=== PATIENT | male | born 1965 | race Caucasian/White ===

== ENCOUNTER → 2016-04-20 | Outpatient (CLI) | payer BC ==
[~2016-04-20] VITALS: Ht 180.3 cm; Wt 89.7 kg
[~2016-04-20] MED LIST: METH500T37 PO; OXYC-57 PO; PRLSR20 PO
[2016-04-20 12:50] VITALS: BP 126/85; PULSE 76; Ht 180.3 cm; Wt 89.7 kg
== END | disposition home or self-care (01) ==
LOC: C.NEUR 12:37
PROVIDERS: ATTEND Internal Medicine Pulmonary Disease
DX: G47.30 Sleep apnea, unspecified (principal); G47.61 Periodic limb movement disorder

== ENCOUNTER → 2016-05-26 | Outpatient (CLI) | payer BC ==
--- NOTE | 2016-05-27 05:41 | PAP/PSG TECHNICIAN REPORT ---
[facility] Remediation Consultant Polysomnogram Report Study name: None Report date: 05/27/2016 Study date: 05/26/2016 Referring Physician: Aurelio Espinal Pulmonary Name: BEVERLY BERRIOS Interpreting Physician: Denilson Pierre M.D. Date of : 1965 Remediation Consultant: Nabila Oropeza [facility]. Sex: Male Age: 50 StudyType: PSG Weight: 197 lbs Height: 50 years, Height 5' 11" Neck Circum: 16 inches BMI: 27.47 Medications: OMEPRAZOLE Patient History 50 yr. old male here for a possible split night sleep study. Patient had a prior sleep study that showed major body movements. Patients Lorane sleepiness scale score is 13/24. Parameters Monitored NPSG: E1-M2, E2-M1, Fp1-M2, Fp2-M1, F3-M2, F4-M2, F4-M1, C3-M2, C4-M2, C4-M1, O1-M2, O2-M2, O2-M1, T3-M2, T4-M1, P3-M2, P4-M1, CHIN1, CHIN2, HR, EKG, Legs, PFLOW, SNOR, FLOW, CFLOW, Tidal Volume, THOR, ABDO, SpO2, PLTH, CPRESS, ETCO2 Wave, ETCO2, pH Sleep Architecture Sleep Stages Time at Lights Off 9:38:38 PM STAGES Time (min.) TST (%) Time at Lights On 4:57:38 AM Wake 40.5 -- Total Recording Time (TRT) 438.00 min. N1 91.0 23 Total Sleep Period (TSP) 430.0 min. N2 235.0 59 Total Sleep Time (TST) 397.5min. N3 5.5 1 Awake Time 40.5 min. REM 66.0 17 Wake after Sleep Onset 32.5 min. Sleep Efficiency (SE) 91 % Sleep Onset Latency (HARLEEN) 9.0 min. Number of Stage 1 Shifts None Awakenings 37 Stage Changes 215 Number of REM periods 2 REM 66.0 17 REM Latency 82.5 min. NREM 331.5 83 Body Position Analysis Supine Right Left Side Prone Vertical Total Sleep Time (min.) 57.1 352.4 0.0 352.39 0.0 2.0 Total Sleep Time (%) 11% 89% 0% 89 0% N/A% Total Sleep Time REM (min.) 0.0 66.0 0.0 None 0.0 0.0 Total Sleep Time NREM (min.) 45.1 286.4 0.0 None 0.0 0.0 Intermittent Wake (min.) 12.0 26.4 0.0 None 0.0 2.0 Total Sleep Period (%) 12% None None None None None Arousals Myoclonus (PLM) * Events Count Index Events Count Index Spontaneous 10 2 Events Awake (PLMW) 69 102.2 Respiratory 66 10.7 Events Asleep w/ Arousal (PLMA) 39 5.9 PLM 36 6 Events Asleep w/o Arousal (PLMS) 213 32.2 Snoring 19 3 Total Asleep 252 38.0 Total 130 20 Total 321 44 Respiratory Analysis * CA OA MA CH H RERA Total Count 1 110 6 0 44 1 161 Index 0.2 16.6 0.9 0 6.6 0 24.5 Mean Duration 35.2 25.5 27.4 0.00 26.3 30.8 25.9 Longest Duration 35.2 50.5 33.4 0.00 33.4 30.8 50.5 Respiratory Event Summary Total Supine ~Supine Right Left Prone REM NREM Apneas Count 117 36 81 81 N/A N/A 2 115 Index 17.7 48 14 13.8 N/A N/A 2 21 Hypopneas (4% Desat) Count 44 13 31 31 N/A N/A 1 43 Index 6.6 17.3 5 5.3 N/A N/A 0.9 7.8 Apneas & All Hypopneas Count 161 49 112 112 N/A N/A 3 158 Index 24.3 65 19 19 N/A N/A 2.7 28.6 Respiratory Events (Nipple Machine Operator+All Hyp+RERA) Count 161 49 113 113 N/A N/A 3 158 Index 24.5 65 19 19.2 N/A N/A 2.7 28.8 Respiratory Related Arousal Count 66 49 48 48 N/A N/A 1 70 Index 10.7 31 8 8 N/A N/A 1 13 Snoring Analysis Supine Right Left Prone REM NREM Total Snore duration 8.9 min Snores count 83 252 N/A N/A 7 328 335 Snore mean duration 1.6 Sec Snores index 110 43 N/A N/A 6.4 59.4 50.6 TST with snoring (%) 2.2% Desaturation Event Summary: Minimum %SpO2 Event Count Mean/Min/Max Duration(sec.) Desaturation Index % Time In Bed > 90 100 30.8 / 15.0 / 53.8 14.5 97.0 86 - 90 0 N/A 0.0 3.0 81 - 85 0 N/A 0.0 0.0 76 - 80 0 N/A 0.0 0.0 71 - 75 0 N/A 0.0 0.0 66 - 70 1 7.3 / 7.3 / 7.3 496.6 0.0 61 - 65 0 N/A 0.0 0.0 56 - 60 0 N/A 0.0 0.0 51 - 55 0 N/A 0.0 0.0 < 50 0 N/A 0.0 0.0 Total REM NREM Awake <50% 0.0 min. 0.0 min. 0.0 min. 0.0 min. 51 - 60% 0.0 min. 0.0 min. 0.0 min. 0.0 min. 61 - 70% 0.1 min. 0.0 min. 0.0 min. 0.1 min. 71 - 80% 0.0 min. 0.0 min. 0.0 min. 0.0 min. 81 - 90% 12.8 min. 2.7 min. 8.8 min. 1.4 min. 91 - 100% 413.6 min. 63.2 min. 314.2 min. 36.1 min. Average 95 94 95 94 Minimum SpO2 68 88 86 68 Desaturation Event Index 13.8 0.9 17.2 7.4 # Desat. Events below 89% 4 N/A 1 3 Time(%) with Saturation below 89% 0.9 0.3 0.5 0.1 Time(min.) with Saturation below 89% 3.9 1.5 2.2 0.3 Time (mins) REM (mins) NREM (mins) % of TST SpO2 Below 90% 16 N/A N16 1.9 SpO2 Below 88% 1 0 0 0 Heart Rate Analysis Min (bpm) Max (bpm) Average (bpm) Awake 30 127 76 NREM 59 127 73 REM 61 86 76 Overall 59 127 74 Supplemental O2 Values Minimum O2 level: None Value Start Time End Time Remediation Consultant Comments MR. Berrios slept in the right and supine positions. No cardiac arrhythmia. PLMs noted. No bruxism noted. Snoring was noted and scored as a 2 on a scale of 0 through 5. (0=no snoring, 5=snoring loud enough to be heard through a closed door or down the delgado way) MR. Berrios did not wake to use the during the night. MR. Berrios stated, That was a normal night. The final report will be interpreted and signed by a sleep physician. The completed physician report will then be placed in the patient medical record. Therapy (cm H2O) 0 TIB (min.) 438.0 TST (min.) 397.5 Sleep Onset (min.) 9.0 REM Onset From Sleep (min.) 82.5 Sleep Efficiency % 91 Wakefulness (%) 9 Wakefulness (min.) 40.5 NREM 1 (%) 23 NREM 1 (min.) 91.0 NREM 2 (%) 59 NREM 2 (min.) 235.0 NREM 3 (%) 1 NREM 3 (min.) 5.5 REM (%) 17 REM (min.) 66.0 # Arousals 130 Arousal Index 20 # Snore 335 Snore Index 50.6 AHI 24.3 AHI Supine 65 AHI Non-Supine 19 NREM AHI 28.6 REM AHI 2.7 RDI 24.5 # Obstructive Apnea 110 # Central Apnea 1 # Mixed Apnea 6 # Hypopneas 44 RERAs 1 Total Respiratory Events 165 Time Below SpO2 89% (min.) 3.7 Mean NREM SpO2 (%) 95 Mean REM SpO2 (%) 94 Mean Sleep SpO2 (%) 95 Min NREM SpO2 (%) 86 Min REM SpO2 (%) 88 Position Supine (min.) 57.1 Position Non-supine (min.) 352.4 LM Index Sleep 38.0 LM Index NREM 43.8 LM Index REM 9.1 Mean Heart Rate (bpm) 74 Min Heart Rate (bpm) 59
--- NOTE | 2016-06-01 07:07 | POLYSOMNOGRAPH REPORT ---
CLINICAL DATA: A 50-year-old male with BMI of 27.5, referred by Dr. Espinal for evaluation of possible CHERRIE with a split-night /baseline sleep study. He has had prior major body movements on previous sleep study and his Russell sleep score is elevated at 13/24. SLEEP ARCHITECTURE: Total sleep period was 430 minutes. Total sleep time was 397.5 minutes, divided between 331.5 minutes of non-REM sleep and 66 minutes REM sleep. Sleep onset latency was 9 minutes. REM latency was 82.5 minutes. Sleep efficiency was 91%. Wake after sleep onset was 32.5 minutes. Sleep consisted of stage N1 23%, N2 59%, N3 1%, REM 17%. AROUSAL DATA: 130 arousals were recorded for an index of 20 per hour. PLM DATA: 252 limb movements during sleep were noted for an index of 38 per hour with arousal index of 5.9 per hour. RESPIRATORY DATA: Moderate sleep apnea/hypopnea was documented. The AHI was 24.3. There was 1 central, 110 obstructive, and 6 mixed apneic episodes. The longest duration of apnea was 50.5 seconds. There were 44 hypopneic episodes. The longest duration of hypopnea was 33.4 seconds. OXIMETRY DATA: Mild nocturnal hypoxemia was seen. Oxygen mago was 86% during non-REM sleep. Mean saturation was 95%. Time below 88% was 1 minute. EKG: Heart rates ranged from 59-127 beats per minute. No arrhythmias were noted. WOOD TILE INSTALLATION HELPER'S COMMENTS: The patient slept in the right and supine positions. Snoring was mild, rated 2 on a scale of 1 through 5. IMPRESSION: Moderate sleep apnea/hypopnea with an AHI of 24.3 with frequent limb movements during sleep. RECOMMENDATIONS: The patient may benefit from a repeat sleep study with CPAP. [facility]
== END | disposition home or self-care (01) ==
LOC: C.NEUR 21:00
PROVIDERS: ATTEND Internal Medicine Pulmonary Disease
DX: G47.30 Sleep apnea, unspecified (principal)

== ENCOUNTER → 2016-06-04 | Outpatient (CLI) | payer BC ==
[~2016-06-04] VITALS: Ht 182.9 cm; Wt 90.0 kg
[2016-06-04 16:04] VITALS: BP 130/82; PULSE 80; Ht 182.9 cm; Wt 90.0 kg
== END | disposition home or self-care (01) ==
LOC: C.NEUR 15:39
PROVIDERS: ATTEND Internal Medicine Pulmonary Disease
DX: G47.61 Periodic limb movement disorder (principal); G47.30 Sleep apnea, unspecified

== ENCOUNTER → 2016-12-21 | Outpatient (CLI) | payer BC ==
--- NOTE | 2016-12-21 10:36 | DIAGNOSTIC IMAGING REPORT ---
FUSION CT SINUSES W/O HISTORY: J32.9 Chronic sinusitis TECHNIQUE: Multiaxial CT images of the sinuses were performed and reformatted in the coronal plane without the use of intravenous contrast. Fusion CT protocol was also obtained. COMPARISON STUDY: None. FINDINGS: A 1.5 cm retention cyst within the right maxillary sinus. Mild mucosal thickening within the floor of the left maxillary sinus. The frontal sinuses, ethmoid air cells, and sphenoid sinuses are clear. Partial opacification of the bilateral mastoid air cells. Mild right nasal septal deviation. Old nasal bone fractures. No fluid levels within the paranasal sinuses. The bilateral ostiomeatal units are patent. Bilateral middle turbinectomy. The orbital floors and lamina papyracea are intact. Right-sided lens implant. The visualized brain parenchyma is unremarkable. There is a metallic implant along the right posterior temporal scalp. IMPRESSION: 1. Mild chronic maxillary sinus disease as described above. 2. No fluid levels within the paranasal sinuses. 3. Mild right nasal septal deviation. 4. Bilateral mastoid effusions. Electronically signed by: Paolo Snyder M.D. 12/21/2016 10:35 AM Dictated Date/Time: 12/21/2016 10:27 AM
== END | disposition home or self-care (01) ==
LOC: C.CTS 10:07
PROVIDERS: ATTEND Physician Assistant
DX: J32.0 Chronic maxillary sinusitis (principal); J34.2 Deviated nasal septum; H74.8X3 Other specified disorders of middle ear and mastoid, bilateral

== ENCOUNTER 2017-02-22 09:24 | Emergency (ER) | payer BC ==
[~2017-02-22] VITALS: Ht 167.6 cm; Wt 87.3 kg
[2017-02-22 09:27] VITALS: TEMP 36.7; Ht 167.6 cm; Wt 87.3 kg
[2017-02-22] MEDS ORDERED: KETOROLAC TROMETHAMINE 30 MG/ML VIAL IV STA (10:02)
[2017-02-22] MEDS ORDERED: ONDANSETRON INJ 2 MG/ML 2 ML VIAL IV STA (10:02)
[2017-02-22] MEDS ORDERED: HYDROmorphone INJ 1 MG/ML SYR IV STA ×2 (10:02→11:30)
[2017-02-22 10:17] LABS: BASO % 0.4 %; BASO ABS # 0.04 K/uL (0-0.2); COMPLETE YES; EOS % 1.6 %; HEMATOCRIT 44.2 % (42-52); IG% 0.3 %; LYMPH % 31.1 %; MEAN CELL VOLUME 90.4 fL (80-100); MEAN CORPUSCULAR HEMOGLOBIN 31.5 pg (25-34); MEAN CORPUSCULAR HGB CONC 34.8 g/dl (32-36); MEAN PLATELET VOLUME 10.2 fL (7.4-10.4); MONO % 8.4 %; NEUT % 58.2 %; PLATELET COUNT 228 K/uL (130-400); RED BLOOD COUNT 4.89 M/uL (4.7-6.1); WHITE BLOOD COUNT 9.97 K/uL (4.8-10.8)
--- NOTE | 2017-02-22 10:19 | EMERGENCY ROOM VISIT NOTE ---
History Report prepared by Oni: Elizabeth Ferguson Under the Supervision of: Dr. Gabriel Fields M.D. First contact with patient: 09:43 Chief Complaint: FLANK PAIN Stated Complaint: PAIN IN SIDE History of Present Illness The patient is a 51 year old male who presents to the Emergency Room with complaints of persistent left flank pain that began 12 hours ago. He currently rates his discomfort as an 8/10 in severity. The patient states that he has a history of a cholecystectomy and states that his pain today feels similar to when he had gallstones. He denies any history of kidney stones. The patient states that he has been vomiting and nauseous, but denies any urinary symptoms. Source of History: patient Onset: 12 hours ago Position: other (left flank) Symptom Intensity: 8/10 Timing: other (persistent) Associated Symptoms: + nausea, + vomiting Review of Systems See HPI for pertinent positives & negatives. A total of 10 systems reviewed and were otherwise negative. Past Medical & Surgical Surgical Problems: (1) Hx of cholecystectomy Social History Smoking Status: Current Every Day Smoker Marital Status: Housing Status: lives with significant other Occupation Status: employed Current/Historical Medications Scheduled Omeprazole (Prilosec), 20 MG PO DAILY Tamsulosin Hcl (Flomax), 0.4 MG PO DAILY Scheduled PRN Oxycodone Immediate Rel Tab (Roxicodone Ir), 1-2 TAB PO Q4H PRN for Severe Pain Allergies Coded Allergies: No Known Allergies (Verified , 02/22/17) Physical Exam Vital Signs Date Time Temp Pulse Resp B/P (MAP) Pulse Ox O2 Delivery O2 Flow Rate FiO2 02/22/17 12:46 67 20 124/71 99 02/22/17 11:12 69 20 127/71 97 02/22/17 09:27 36.7 78 18 172/86 98 Room Air Physical Exam GENERAL: Patient is a healthy-appearing well-nourished male HEAD: Normocephalic atraumatic EYES: Ocular movements intact pupils equal and react to light OROPHARYNX mucous membranes are moist no exudates present no erythema or edema present NECK: Supple no nuchal rigidity CHEST: Good equal expansion LUNGS: Clear and equal to auscultation CARDIAC: Normal S1 and S2 ABDOMEN: Soft nontender no guarding BACK: No CVA tenderness EXTREMITIES: No pain upon palpation normal muscle strength in all groups no clubbing cyanosis or edema NEURO: Patient is following commands and answering questions appropriately. Alert and oriented x3 Cranial Nerves 2-12 grossly intact Medical Decision & Procedures ER Provider Diagnostic Interpretation: CT results as stated below per my review and radiologist interpretation: ABD/PELVIS WITHOUT FOR STONE HISTORY: 51 years-old Male Pt c/o Left sided flank pain acute left-sided flank pain COMPARISON: CT abdomen and pelvis 04/11/2010 TECHNIQUE: Multiple axial CT images of the abdomen and pelvis were obtained without contrast. A dose lowering technique was used consistent with the principals of PANFILO. FINDINGS: Mild dependent subsegmental bibasilar atelectasis. No pneumatosis or pneumoperitoneum. Imaged inferior cardiac chambers are unremarkable. Prior cholecystectomy. Suspected mild fatty infiltration of the liver. Punctate calcification is noted adjacent to the uncinate process pancreas which is nonspecific. Pancreas is otherwise unremarkable. Adrenal glands are within normal limits. 5 x 3 mm nonobstructing calculus is seen within the interpolar left kidney. There is mild left-sided obstructive uropathy secondary to a 5 x 3 x 6 mm calculus of the proximal left ureter just present level of L3 approximately 3.7 cm distal to the ureteropelvic junction. Right kidney and right ureter are unremarkable. Urinary bladder is partially collapsed. Prostate appears to be within the upper limits of normal in size. There is minimal atherosclerosis of the aorta. No pathologic adenopathy. There is mild gaseous distention of the distal esophagus. There is no bowel obstruction or focal bowel wall thickening. There is nondistention of the rectosigmoid. There are scattered noninflamed colonic diverticula. The appendix appears normal. Soft tissues are unremarkable. Bones appear intact. Mild degenerative changes of the bilateral hips. There is a bone island of the left femoral head. Mild convex left curvature of the lumbar spine. IMPRESSION: 1. Mild left-sided hydroureteronephrosis secondary to a 5 x 3 x 6 mm calculus of the proximal left ureter at the level of L3. Additional nonobstructing calculus of the interpolar left kidney is noted. 2. Prior cholecystectomy. 3. Additional findings as above. The above report was generated using voice recognition software. It may contain grammatical, syntax or spelling errors. Electronically signed by: Elijah Raphael M.D. 02/22/2017 10:31 AM Dictated Date/Time: 02/22/2017 10:25 AM Laboratory Results 02/22/17 09:45 Red Blood Count 4.89, Mean Corpuscular Volume 90.4, Mean Corpuscular Hemoglobin 31.5, Mean Corpuscular Hemoglobin Concent 34.8, Mean Platelet Volume 10.2, Neutrophils (%) (Auto) 58.2, Lymphocytes (%) (Auto) 31.1, Monocytes (%) (Auto) 8.4, Eosinophils (%) (Auto) 1.6, Basophils (%) (Auto) 0.4, Neutrophils # (Auto) 5.80, Lymphocytes # (Auto) 3.10, Monocytes # (Auto) 0.84, Eosinophils # (Auto) 0.16, Basophils # (Auto) 0.04 02/22/17 09:45 Test 02/22/17 09:45 White Blood Count 9.97 K/uL (4.8-10.8) Red Blood Count 4.89 M/uL (4.7-6.1) Hemoglobin 15.4 g/dL (14.0-18.0) Hematocrit 44.2 % (42-52) Mean Corpuscular Volume 90.4 fL (80-100) Mean Corpuscular Hemoglobin 31.5 pg (25-34) Mean Corpuscular Hemoglobin Concent 34.8 g/dl (32-36) Platelet Count 228 K/uL (130-400) Mean Platelet Volume 10.2 fL (7.4-10.4) Neutrophils (%) (Auto) 58.2 % Lymphocytes (%) (Auto) 31.1 % Monocytes (%) (Auto) 8.4 % Eosinophils (%) (Auto) 1.6 % Basophils (%) (Auto) 0.4 % Neutrophils # (Auto) 5.80 K/uL (1.4-6.5) Lymphocytes # (Auto) 3.10 K/uL (1.2-3.4) Monocytes # (Auto) 0.84 K/uL (0.11-0.59) Eosinophils # (Auto) 0.16 K/uL (0-0.5) Basophils # (Auto) 0.04 K/uL (0-0.2) RDW Standard Deviation 42.0 fL (36.4-46.3) RDW Coefficient of Variation 12.9 % (11.5-14.5) Immature Granulocyte % (Auto) 0.3 % Immature Granulocyte # (Auto) 0.03 K/uL (0.00-0.02) Urine Color DK YELLOW Urine Appearance TURBID (CLEAR) Urine pH 5.0 (4.5-7.5) Urine Specific [place] 1.027 (1.000-1.030) Urine Protein TRACE (NEG) Urine Glucose (UA) NEG (NEG) Urine Ketones NEG (NEG) Urine Occult Blood 3+ (NEG) Urine Nitrite NEG (NEG) Urine Bilirubin NEG (NEG) Urine Urobilinogen NEG (NEG) Urine Leukocyte Esterase NEG (NEG) Urine WBC (Auto) 1-5 /hpf (0-5) Urine RBC (Auto) 10-30 /hpf (0-4) Urine Hyaline Casts (Auto) 5-10 /lpf (0-5) Urine Epithelial Cells (Auto) 10-20 /lpf (0-5) Urine Bacteria (Auto) NEG (NEG) Anion Gap 8.0 mmol/L (3-11) Est Creatinine Clear Calc Drug Dose 74.1 ml/min Estimated GFR () 79.1 Estimated GFR (Non- 68.2 BUN/Creatinine Ratio 13.2 (10-20) Calcium Level 9.0 mg/dl (8.5-10.1) Total Bilirubin 0.3 mg/dl (0.2-1) Direct Bilirubin < 0.1 mg/dl (0-0.2) Aspartate Amino Transf (AST/SGOT) 13 U/L (15-37) Alanine Aminotransferase (ALT/SGPT) 19 U/L (12-78) Alkaline Phosphatase 99 U/L (45-117) Total Protein 8.2 gm/dl (6.4-8.2) Albumin 4.1 gm/dl (3.4-5.0) Lipase 193 U/L (73-393) Labs reviewed by ED physician. Medications Administered Medications (Trade) Dose Ordered Sig/Ailyn Route Start Time Stop Time Status Last Admin Dose Admin Ketorolac Tromethamine (Toradol Inj) 30 mg NOW STAT IV 02/22/17 10:02 02/22/17 10:03 DC 02/22/17 10:09 30 MG Hydromorphone HCl (Dilaudid Inj) 1 mg NOW STAT IV 02/22/17 10:02 02/22/17 10:03 DC 02/22/17 10:11 1 MG Ondansetron HCl (Zofran Inj) 4 mg NOW STAT IV 02/22/17 10:02 02/22/17 10:03 DC 02/22/17 10:10 4 MG Tamsulosin HCl (Flomax Cap) 0.4 mg NOW STAT PO 02/22/17 10:56 02/22/17 10:57 DC 02/22/17 11:15 0.4 MG Hydromorphone HCl (Dilaudid Inj) 1 mg NOW STAT IV 02/22/17 11:30 02/22/17 11:31 DC 02/22/17 11:41 1 MG ED Course 1000: Past medical records reviewed. The patient was evaluated in room A4B. A complete history and physical examination was performed. 1002: Ordered Zofran Inj 4 mg IV, Dilaudid Inj 1 mg IV, Toradol Inj 30 mg IV. 1056: Ordered Flomax Cap 0.4 mg PO. 1130: I reevaluated the patient and he is still experiencing pain. I discussed the exam findings with him and I discussed the treatment plan. He verbalized complete understanding and agreement. He is ready to go home. Ordered Dilaudid Inj 1 mg IV. Medical Decision Differential diagnosis: Etiologies such as appendicitis, diverticulitis, PUD, biliary pathology, UTI, pancreatitis, obstruction, mesenteric ischemia, aortic pathology, infections, inflammatory bowel disease, renal colic, as well as others were entertained. This is a 51-year-old male who presents emergency department complaining of abdominal pain. Serial abdominal examinations patient in the emergency department and no tended the patient exhibited a surgical abdomen. In addition the patient has a soft abdomen. CAT scan is concerning for the larger kidney stone. An IV was established, patient given Toradol as well as Dilaudid. Repeat examination revealed improvement patient's symptoms. I will note that the patient is afebrile here and does not have an elevation in his white blood count cell count. Based on these findings the patient wished to try concervative management at home however he will return if he develops fevers or his pain is out of control. He'll be placed on Flomax as well as oxycodone. I strongly recommended that the patient follow-up with urology. Patient was in agreement with the treatment plan. Medication Reconcilliation Current Medication List: was personally reviewed by me Blood Pressure Screening Patient's blood pressure: Normal blood pressure Blood pressure disposition: Did not require urgent referral Impression Primary Impression: Kidney stone Scribe Attestation The scribe's documentation has been prepared under my direction and personally reviewed by me in its entirety. I confirm that the note above accurately reflects all work, treatment, procedures, and medical decision making performed by me. Departure Information Dispostion Home / Self-Care Prescriptions Tamsulosin Hcl (FLOMAX) 0.4 Mg Cap 0.4 MG PO DAILY for 10 Days, #10 CAP Prov: Gabriel Fields MD 02/22/17 Oxycodone Immediate Rel Tab (ROXICODONE IR) 5 Mg Tab 1-2 TAB PO Q4H Y for Severe Pain, #24 TAB Prov: Gabriel Fields MD 02/22/17 Referrals No Doctor, Assigned (PCP) Italo Mcduffie MD, Urology Brittany HoangN.PArcadio Forms HOME CARE DOCUMENTATION FORM, IMPORTANT VISIT INFORMATION, School Instructions, Work Instructions Patient Instructions Kidney Stones - [facility], Kidney Stones Expectant Therapy, Kidney Stones Prevent, Kidney Stones Risk, [facility] Additional Instructions Return if you develop fevers or pain is out of control Follow up with Dr Mcduffie's office Take 1000 mg Tylenol every 6 hours Take Oxy IR for breakthrough pain You received narcotic or benzodiazepene medication while in the emergency room today. This is an addictive medication that may cause drowziness as well as constipation. Do not drive, operate heavy machinery, or drink alcohol under the influence of this medication. You have been examined and treated today on an emergency basis only. This is not a substitute for, or an effort to provide, complete comprehensive medical care. It is impossible to recognize and treat all injuries or illnesses in a single emergency department visit. It is therefore important that you follow up closely with Dr Hoang. Call as soon as possible for an appointment. Thank you for your time and consideration. I look forward to speaking with you again soon. Please don't hesitate to call us if you have any questions.
--- NOTE | 2017-02-22 10:32 | DIAGNOSTIC IMAGING REPORT ---
ABD/PELVIS WITHOUT FOR STONE HISTORY: 51 years-old Male Pt c/o Left sided flank pain acute left-sided flank pain COMPARISON: CT abdomen and pelvis 04/11/2010 TECHNIQUE: Multiple axial CT images of the abdomen and pelvis were obtained without contrast. A dose lowering technique was used consistent with the principals of PANFILO. FINDINGS: Mild dependent subsegmental bibasilar atelectasis. No pneumatosis or pneumoperitoneum. Imaged inferior cardiac chambers are unremarkable. Prior cholecystectomy. Suspected mild fatty infiltration of the liver. Punctate calcification is noted adjacent to the uncinate process pancreas which is nonspecific. Pancreas is otherwise unremarkable. Adrenal glands are within normal limits. 5 x 3 mm nonobstructing calculus is seen within the interpolar left kidney. There is mild left-sided obstructive uropathy secondary to a 5 x 3 x 6 mm calculus of the proximal left ureter just present level of L3 approximately 3.7 cm distal to the ureteropelvic junction. Right kidney and right ureter are unremarkable. Urinary bladder is partially collapsed. Prostate appears to be within the upper limits of normal in size. There is minimal atherosclerosis of the aorta. No pathologic adenopathy. There is mild gaseous distention of the distal esophagus. There is no bowel obstruction or focal bowel wall thickening. There is nondistention of the rectosigmoid. There are scattered noninflamed colonic diverticula. The appendix appears normal. Soft tissues are unremarkable. Bones appear intact. Mild degenerative changes of the bilateral hips. There is a bone island of the left femoral head. Mild convex left curvature of the lumbar spine. IMPRESSION: 1. Mild left-sided hydroureteronephrosis secondary to a 5 x 3 x 6 mm calculus of the proximal left ureter at the level of L3. Additional nonobstructing calculus of the interpolar left kidney is noted. 2. Prior cholecystectomy. 3. Additional findings as above. The above report was generated using voice recognition software. It may contain grammatical, syntax or spelling errors. Electronically signed by: Elijah Raphael M.D. 02/22/2017 10:31 AM Dictated Date/Time: 02/22/2017 10:25 AM
[2017-02-22 10:34] LABS: ALT/SGPT 19 U/L (12-78); AST/SGOT 13 U/L (15-37); BLOOD UREA NITROGEN 16 mg/dl (7-18); BUN/CREATININE RATIO 13.2 (10-20); CARBON DIOXIDE 25 mmol/L (21-32); CHLORIDE 105 mmol/L (98-107); CREATININE 1.22 mg/dl (0.60-1.40); GLUCOSE 112 mg/dl (70-99); POTASSIUM 3.6 mmol/L (3.5-5.1); SODIUM 137 mmol/L (136-145)
[2017-02-22 10:37] LABS: ALKALINE PHOSPHATASE 99 U/L (45-117)
[2017-02-22] MEDS ORDERED: TAMSULOSIN HCL 0.4 MG CAP PO STA (10:56)
[2017-02-22 11:21] LABS: URINE APPEARANCE TURBID (CLEAR); URINE BILIRUBIN NEG (NEG); URINE COLOR DK YELLOW; URINE NITRITE NEG (NEG); URINE SPECIFIC GRAVITY 1.027 (1.000-1.030); UROBILINOGEN NEG (NEG)
[2017-02-22 11:22] LABS: MANUAL MICROSCOPIC REQUIRED? NO; REVIEW REQ? NO
[2017-02-22] MEDS ORDERED: OXYC1TAB3 PO (11:40)
[2017-02-22] MEDS ORDERED: TAMS0.4C38 PO (11:40)
[2017-02-22 12:46] VITALS: BP 124/71; PULSE 67; O2SAT 99
== END 2017-02-22 12:48 | disposition home or self-care (01) ==
LOC: C.EDB 09:26 → C.EDA 12:48
DX: N20.0 Calculus of kidney (principal); Z90.49 Acquired absence of other specified parts of digestive tract; F17.200 Nicotine dependence, unspecified, uncomplicated

== ENCOUNTER → 2017-02-24 | Outpatient (CLI) | payer BC ==
[~2017-02-24] MED LIST changes: -METH500T37 PO; -OXYC-57 PO; +OXYC1TAB3 PO; +TAMS0.4C38 PO
--- NOTE | 2017-02-24 17:10 | DIAGNOSTIC IMAGING REPORT ---
CHEST 2 VIEWS ROUTINE CLINICAL HISTORY: N20.0 Nephrolithiasis preoperative evaluation COMPARISON STUDY: 05/23/2011 FINDINGS: Mild emphysematous and chronic interstitial change. No focal infiltrate. Diaphragms smooth. No evidence for cardiac enlargement. IMPRESSION: Chronic interstitial change. No acute process. The above report was generated using voice recognition software. It may contain grammatical, syntax or spelling errors. Electronically signed by: Cuong Sears M.D. 02/24/2017 5:08 PM Dictated Date/Time: 02/24/2017 5:07 PM
--- NOTE | 2017-02-24 17:15 | DIAGNOSTIC IMAGING REPORT ---
KUB CLINICAL HISTORY: N20.0 Nephrolithiasis nephrocalcinosis COMPARISON STUDY: CT abdomen and pelvis 02/22/2017 FINDINGS: Nonobstructive bowel pattern. Probable poorly defined 4.5 mm calcification medially inferior to the left transverse process of L3. No additional urinary tract calcifications are identified. IMPRESSION: Probable poorly defined 4.5 mm calculus mid left ureter at the level of L3 The above report was generated using voice recognition software. It may contain grammatical, syntax or spelling errors. Electronically signed by: Cuong Sears M.D. 02/24/2017 5:14 PM Dictated Date/Time: 02/24/2017 5:12 PM
== END | disposition home or self-care (01) ==
LOC: C.RAD 16:43
PROVIDERS: ATTEND Urology
DX: N20.0 Calculus of kidney (principal)

== ENCOUNTER → 2017-03-04 | Outpatient (CLI) | payer BC ==
[~2017-03-04] MED LIST changes: +ACET-1256 PO; +HYDR-5688 PO; +OXYC-57 PO
--- NOTE | 2017-03-04 17:44 | DIAGNOSTIC IMAGING REPORT ---
KUB HISTORY: N20.0 Nephrolithiasis COMPARISON: [facility] 02/24/2017. FINDINGS: The bowel gas pattern is unremarkable. There are no dilated loops of small bowel to suggest an obstruction. No significant change in the 5 mm stone within the proximal left ureter adjacent to the left L3 transverse process. Stable calcifications in the deep pelvis consistent with phleboliths. There is also a 5 mm linear stone within the upper pole the left kidney. No pneumoperitoneum or pneumatosis. Cholecystectomy. IMPRESSION: 1. No change in the 5 mm proximal left ureteral stone. 2. Stable left-sided nephrolithiasis. Electronically signed by: Paolo Snyder M.D. 03/04/2017 5:42 PM Dictated Date/Time: 03/04/2017 5:41 PM
== END | disposition home or self-care (01) ==
LOC: C.RAD 16:54
PROVIDERS: ATTEND Urology
DX: N20.2 Calculus of kidney with calculus of ureter (principal)

== ENCOUNTER → 2017-03-05 | Day surgery (SDC) | payer BC ==
[2017-03-01 13:05] VITALS: Ht 182.9 cm; Wt 86.4 kg
[~2017-03-05] VITALS: Ht 182.9 cm; Wt 86.4 kg
[~2017-03-05] MED LIST changes: +ATROPINE SULFATE 0.1 MG/ML 5ML SYR IV PRN; +CIPROFLOXACIN 400MG / D5W IV SCH; +DEXAMETHASONE SOD INJ 4 MG/ML VIAL ONE; +FENTANYL CITRATE INJ 50 MCG/1 ML 2 ML VIAL ONE; +KETOROLAC TROMETHAMINE 30 MG/ML VIAL IV ONE; +KETOROLAC TROMETHAMINE 30 MG/ML VIAL ONE; +LABETALOL HCL IV 5 MG/ML 20ML IV PRN; +LACTATED RINGER'S 1000ML 1,000 ML IV SCH; +LIDOCAINE HCL 2% 2 ML VIAL (20MG/ML) ONE; +MIDAZOLAM HCL 1 MG/ML 2ML VIAL ONE; +MoRPHine SULFATE 10 MG/ML CARP/VIAL ONE; +MoRPHine SULFATE 4 MG/ML 1 ML CARP\\VIAL IV STA; +ONDANSETRON INJ 2 MG/ML 2 ML VIAL IV PRN; +ONDANSETRON INJ 2 MG/ML 2 ML VIAL ONE; +OXYCODONE/ACETAMINOPHEN 5-325 TAB PO PRN; +PROPOFOL IV EMULSION 10 MG/ML 20 ML VIAL IV ONE; +SODIUM CHLORIDE 0.9% 1000ML 1,000 ML IV SCH
--- NOTE | 2017-03-05 07:43 | History & Physical Bridge Note ---
H&P Re-Evaluation Bridge Note: I have examined the patient, reviewed the History & Physical and in the interval since the performance of the History & Physical I have noted the following changes of clinical significance: No changes noted
--- NOTE | 2017-03-05 08:23 | Discharge Instructions-SurgCtr ---
Discharge Instructions Date of Service Mar 05, 2017. Visit Reason for Visit: Stones Discharge Discharge Diagnosis / Problem: stones Discharge Goals Goal(s): Decrease discomfort, Improve function, Increase independence, Improve disease control Activity Recommendations Activity Limitations: resume your previous activity Lifting Limitations: none Exercise/Sports Limitations: none May Resume Sexual Activity: when tolerated Shower/Bathe: no limitations Driving or Machine Use: no limitations Anesthesia . Post Anesthesia Instructions: If you have had General Anesthesia or IV Sedation: * Do not drive today. * Resume driving when surgeon permits. * Do not make important decisions or sign legal documents today. * Call surgeon for: 1. Temperature elevations greater than 101 degrees F. 2. Uncontrollable pain. 3. Excessive bleeding. 4. Persistent nausea and vomiting. 5. Medication intolerance (nausea, vomiting or rash). * For nausea and vomiting use only clear liquids such as: tea, soda, bouillon until nausea subsides, then gradually increase diet as tolerated. * If you have any concerns or questions, call your surgeon's office. If physician is unavailable and it is an emergency, call 911 or go to the nearest emergency room. . Diet Recommendations Home Diet: no limitations Pending Studies Studies pending at discharge: no Medical Emergencies . Who to Call and When: Medical Emergencies: If at any time you feel your situation is an emergency, please call 911 immediately. . Non-Emergent Contact Non-Emergency issues call your: Urologist Call Non-Emergent contact if: you have a fever, temperature is above 101.5 . . "Provider Documentation" section prepared by Jose Wiggins. . [place] Drug Monitoring Program Search Results: patient reviewed within database, no issues identified
--- NOTE | 2017-03-05 09:03 | [facility] Operative Report ---
Operative Report Operative Date Mar 05, 2017. Pre-Operative Diagnosis Left ureteral stones Post-Operative Diagnosis same as preop Procedure(s) Performed Left Extracorporeal Shock Wave Lithotripsy Surgeon Dr. Apodaca Master Planner Surgeon(s) none Estimated Blood Loss 0ml Findings Left UPJ/proximal ureteral stone Specimens none per surgeon Drains none Anesthesia Gen. Complication(s) None Disposition Recovery Room / PACU (stable) Indications Left ureteral stone Description of Procedure The patient was identified in the preoperative holding area, appropriate informed consent was reviewed and completed and the patient was transported to the operating suite. Upon arrival appropriate preoperative antibiotics were administered and general anesthesia induced. The patient was placed in supine position and the stone was localized under fluoroscopy. A total of 3000 shocks were delivered to the stone. There appeared to be good fragmentation of the stone. Details of this procedure can be found on the [facility] information sheet. At the conclusion of the case the patient was extubated and taken to the PACU in stable condition. There were no complications. I attest to the content of the Intraoperative Record and any orders documented therein. Any exceptions are noted below.
[2017-03-05] MEDS: FENTANYL CITRATE INJ 50 MCG/1 ML 2 ML VIAL IV PRN ×2 (09:24→09:31)
[2017-03-05 09:49] VITALS: TEMP 37
[2017-03-05] MEDS: OXYCODONE/ACETAMINOPHEN 5-325 TAB PO PRN ×2 (10:12→10:18)
--- NOTE | 2017-03-05 10:17 | Anesthesia Progress Nt - [facility] ---
Anesthesia Post Op Note Date & Time Mar 05, 2017 at 10:17 Vital Signs Pain Intensity: 4 Vital Signs Past 12 Hours Date Time Temp Pulse Resp B/P (MAP) Pulse Ox O2 Delivery O2 Flow Rate FiO2 03/05/17 09:49 37 65 16 138/88 (105) 99 Room Air 03/05/17 09:36 66 21 03/05/17 09:36 68 21 130/88 98 03/05/17 09:35 36.6 69 20 156/94 98 Room Air 03/05/17 09:31 65 14 03/05/17 09:31 66 14 132/88 98 03/05/17 09:26 61 12 148/86 100 03/05/17 09:26 60 12 03/05/17 09:21 62 13 142/89 100 03/05/17 09:21 62 13 03/05/17 09:16 61 16 137/88 100 03/05/17 09:16 62 16 03/05/17 09:11 62 18 134/90 100 03/05/17 09:11 62 18 03/05/17 09:06 36.7 77 16 160/97 100 Mask 6 03/05/17 09:06 73 13 160/97 100 03/05/17 09:06 74 13 03/05/17 06:49 36.8 74 16 131/87 (102) 96 Room Air Notes Mental Status: alert / awake / arousable, participated in evaluation Pt Amnestic to Procedure: Yes Nausea / Vomiting: adequately controlled Pain: adequately controlled Airway Patency, RR, SpO2: stable & adequate BP & HR: stable & adequate Hydration State: stable & adequate Anesthetic Complications: no major complications apparent
[2017-03-05 10:55] VITALS: BP 143/94; PULSE 64; O2SAT 98
--- NOTE | 2017-03-05 11:23 | Progress Note ---
Progress Note Date of Service Mar 05, 2017. Progress Note Pt having increased pain in the recovery room. Seen and examined. Limited improvement with percocet/morphine. NO visible swelling/bruising. - not tender to touch on the back I suspect his stone is moving/transiently occluding his ureter - trial of a dose of Toradol - if no improvement, eval in ER (CT ) to r/o perinephric hematoma, etc
== END | disposition home or self-care (01) ==
LOC: X.SURG 06:31
PROVIDERS: ATTEND Urology

== ENCOUNTER → 2017-03-16 | Outpatient (CLI) | payer BC ==
[~2017-03-16] MED LIST changes: -ATROPINE SULFATE 0.1 MG/ML 5ML SYR IV PRN; -CIPROFLOXACIN 400MG / D5W IV SCH; -DEXAMETHASONE SOD INJ 4 MG/ML VIAL ONE; -FENTANYL CITRATE INJ 50 MCG/1 ML 2 ML VIAL ONE; -HYDR-5688 PO; -KETOROLAC TROMETHAMINE 30 MG/ML VIAL IV ONE; -KETOROLAC TROMETHAMINE 30 MG/ML VIAL ONE; -LABETALOL HCL IV 5 MG/ML 20ML IV PRN; -LACTATED RINGER'S 1000ML 1,000 ML IV SCH; -LIDOCAINE HCL 2% 2 ML VIAL (20MG/ML) ONE; -MIDAZOLAM HCL 1 MG/ML 2ML VIAL ONE; -MoRPHine SULFATE 10 MG/ML CARP/VIAL ONE; -MoRPHine SULFATE 4 MG/ML 1 ML CARP\\VIAL IV STA; -ONDANSETRON INJ 2 MG/ML 2 ML VIAL IV PRN; -ONDANSETRON INJ 2 MG/ML 2 ML VIAL ONE; +OXYC-737 PO; -OXYC1TAB3 PO; -OXYCODONE/ACETAMINOPHEN 5-325 TAB PO PRN; -PROPOFOL IV EMULSION 10 MG/ML 20 ML VIAL IV ONE; -SODIUM CHLORIDE 0.9% 1000ML 1,000 ML IV SCH
== END | disposition home or self-care (01) ==
LOC: C.LABSPEC 16:44
PROVIDERS: ATTEND Urology
DX: N20.0 Calculus of kidney (principal)

== ENCOUNTER → 2017-03-16 | Outpatient (CLI) | payer BC ==
--- NOTE | 2017-03-16 08:24 | DIAGNOSTIC IMAGING REPORT ---
KUB HISTORY: N20.0 Nephrolithiasis [id number] COMPARISON: None. FINDINGS: The bowel gas pattern is unremarkable. There are no dilated loops of small bowel to suggest an obstruction. Stable 6 mm stone within the upper pole the left kidney. No right renal calculi. No ureteral calculi. Stable calcification within the left deep pelvis consistent with a phlebolith. No pneumoperitoneum or pneumatosis. IMPRESSION: 1. Stable left-sided nephrolithiasis. 2. No ureteral calculi identified. Electronically signed by: Paolo Snyder M.D. 03/16/2017 8:23 AM Dictated Date/Time: 03/16/2017 8:16 AM
== END | disposition home or self-care (01) ==
LOC: C.RAD 07:55
PROVIDERS: ATTEND Urology
DX: N20.0 Calculus of kidney (principal)

== ENCOUNTER → 2017-03-18 | Outpatient (CLI) | payer BC ==
[~2017-03-18] MED LIST changes: -OXYC-737 PO; +OXYC1TAB3 PO
--- NOTE | 2017-03-18 17:48 | DIAGNOSTIC IMAGING REPORT ---
KUB CLINICAL HISTORY: 51 years-old Male presenting with NEPHROLITHIASIS. TECHNIQUE: Single supine view of the abdomen was obtained. COMPARISON: 03/16/[address] from 02/22/2017. FINDINGS: Cholecystectomy clips noted. Nonobstructive bowel gas pattern. No gross pneumoperitoneum. Allowing for the presence of bowel gas and stool, calcification or DEXA over the left kidney unchanged in position. No ureteral calculi. Left pelvic phlebolith again noted. No radiographically apparent right renal calculi. Osseous structures normal. Lung bases clear. IMPRESSION: 1. Stable appearance of the left renal calculus. No ureteral calculi. Electronically signed by: Tomasz Almodovar M.D. 03/18/2017 5:47 PM Dictated Date/Time: 03/18/2017 5:45 PM
== END | disposition home or self-care (01) ==
LOC: C.RAD 17:28
PROVIDERS: ATTEND Urology
DX: N20.0 Calculus of kidney (principal)

== ENCOUNTER → 2017-03-19 | Day surgery (SDC) | payer BC ==
[2017-03-18 10:45] VITALS: Ht 182.9 cm; Wt 86.4 kg
[~2017-03-19] VITALS: Ht 182.9 cm; Wt 86.4 kg
[~2017-03-19] MED LIST changes: +ATROPINE SULFATE 0.1 MG/ML 5ML SYR IV PRN; +CIPROFLOXACIN 400MG / D5W IV SCH; +EpHEDrine SULFATE INJ 50 MG/ML AMP IV PRN; +FENTANYL CITRATE INJ 50 MCG/1 ML 2 ML VIAL IV PRN; +FENTANYL CITRATE INJ 50 MCG/1 ML 2 ML VIAL ONE; +HYDROmorphone INJ 1 MG/ML SYR IV PRN; +LIDOCAINE HCL 2% 2 ML VIAL (20MG/ML) ONE; +MIDAZOLAM HCL 1 MG/ML 2ML VIAL ONE; +ONDANSETRON INJ 2 MG/ML 2 ML VIAL IV PRN; +ONDANSETRON INJ 2 MG/ML 2 ML VIAL ONE; +OXYC-737 PO; -OXYC1TAB3 PO; +OXYCODONE/ACETAMINOPHEN 5-325 TAB PO PRN; +PROMETHAZINE HCL INJ 12.5 MG in SODIUM CHLORIDE 0.9% 50ML 50 ML IV PRN; +PROPOFOL IV EMULSION 10 MG/ML 20 ML VIAL IV ONE
[2017-03-19] MEDS: LACTATED RINGER'S 1000ML 1,000 ML IV SCH ×2 (10:01→12:07)
--- NOTE | 2017-03-19 11:10 | Discharge Instructions ---
Discharge Instructions Date of Service Mar 19, 2017. Admission Reason for Admission: Stones Discharge Discharge Diagnosis / Problem: L renal stones s/p ESWL Discharge Goals Goal(s): Improve function, Therapeutic intervention Activity Recommendations Activity Limitations: as noted below Lifting Limitations: no more than 25 pounds, gradually increase as tolerated Exercise/Sports Limitations: rest today, gradually increase as tolerated May Resume Sexual Activity: when tolerated Shower/Bathe: no limitations Driving or Machine Use: resume 1 day after discharge . Instructions / Follow-Up Instructions / Follow-Up Strain urine as instructed. Follow-up as scheduled with [facility] Xray before visit. Current Hospital Diet Patient's current hospital diet: Discharge Diet Recommended Diet: Regular Diet (good fluid intake) Procedures Procedures Performed: Left Extracorporeal Shock Wave Lithotripsy, Repeat Pending Studies Studies pending at discharge: no Medical Emergencies . Who to Call and When: Medical Emergencies: If at any time you feel your situation is an emergency, please call 911 immediately. . Non-Emergent Contact Non-Emergency issues call your: Urologist Call Non-Emergent contact if: you have a fever, temperature is above 101, your pain is not controlled, your pain is worsening, your pain is unusual for you, your pain is concerning you, you have any medication questions . . "Provider Documentation" section prepared by Italo Mcduffie. . VTE Core Measure Inpt VTE Proph given/why not?: [facility] [place] Drug Monitoring Program Search Results: patient reviewed within database, see additional documentation (patient requested Rx for pain meds - filled #[address] Apodaca, can use those)
--- NOTE | 2017-03-19 11:35 | [facility] Post Operative Brief Note ---
Immediate Operative Summary Operative Date Mar 19, 2017. Pre-Operative Diagnosis Left Renal Stone Post-Operative Diagnosis Same Procedure(s) Performed Left Extracorporeal Shock Wave Lithotripsy, Repeat Surgeon Dr. Trever Mcduffie Rn Security Surgeon(s) None Estimated Blood Loss 0 Findings Good stone fragmentation on fluoro Specimens None Drains NA Anesthesia GALMA Complication(s) None Disposition Recovery Room / PACU
--- NOTE | 2017-03-19 12:18 | OPERATIVE REPORT ---
DATE OF OPERATION: 03/19/2017 PREOPERATIVE DIAGNOSIS: Left renal stones. POSTOPERATIVE DIAGNOSIS: Same. PROCEDURE: Left renal extracorporeal shockwave lithotripsy. SURGEON: Dr. Italo Mcduffie. SELLING UNDERWRITER: None. ANESTHESIA: General anesthesia with laryngeal mask. COMPLICATIONS: None. FINDINGS: Good stone fragmentation on fluoroscopy. DETAILS OF PROCEDURE: The patient was brought to the litho suite. He was correctly identified and the stone was visualized on his most recent x-rays. After the correct time out was performed the patient was positioned over the therapy head. An adequate level of anesthesia was administered. The extracorporeal shockwave lithotripsy treatment was then commenced. Please see the [place] [facility] sheet for complete treatment summary. After completion of the procedure the patient was taken to the recovery room in stable condition. I attest to the content of the Intraoperative Record and any orders documented therein. Any exception s are noted below.
[2017-03-19 12:33] VITALS: TEMP 36.6
[2017-03-19 12:46] VITALS: BP 131/86; PULSE 65; O2SAT 98
--- NOTE | 2017-03-19 12:51 | Anesthesia Progress Nt - [facility] ---
Anesthesia Post Op Note Date & Time Mar 19, 2017 at 12:51 Vital Signs Pain Intensity: 5.0 Vital Signs Past 12 Hours Date Time Temp Pulse Resp B/P (MAP) Pulse Ox O2 Delivery O2 Flow Rate FiO2 03/19/17 12:46 65 20 131/86 (101) 98 Room Air 03/19/17 12:33 36.6 74 20 151/90 (110) 98 Room Air 03/19/17 12:17 36.4 75 13 03/19/17 12:17 73 13 100 03/19/17 12:15 135/85 03/19/17 12:12 60 13 100 03/19/17 12:12 61 13 03/19/17 12:10 135/82 03/19/17 12:07 63 14 100 03/19/17 12:07 63 14 03/19/17 12:05 131/82 03/19/17 12:02 63 13 100 03/19/17 12:02 63 13 03/19/17 12:00 134/84 03/19/17 11:57 63 7 03/19/17 11:57 62 7 100 03/19/17 11:55 127/79 03/19/17 11:52 66 14 03/19/17 11:52 66 14 100 03/19/17 11:50 138/81 03/19/17 11:47 67 13 100 03/19/17 11:47 67 13 03/19/17 11:45 130/85 03/19/17 11:42 71 14 03/19/17 11:42 69 14 100 03/19/17 11:40 140/89 03/19/17 11:38 149/92 03/19/17 11:38 36.7 78 12 149/92 100 Mask 6 03/19/17 08:52 36.8 71 16 136/84 (101) 96 Room Air Notes Mental Status: alert / awake / arousable, participated in evaluation Pt Amnestic to Procedure: Yes Nausea / Vomiting: adequately controlled Pain: adequately controlled Airway Patency, RR, SpO2: stable & adequate BP & HR: stable & adequate Hydration State: stable & adequate Anesthetic Complications: no major complications apparent
== END | disposition home or self-care (01) ==
LOC: X.SURG 08:34
PROVIDERS: ATTEND Urology
DX: N20.0 Calculus of kidney (principal); G47.30 Sleep apnea, unspecified; K21.0 Gastro-esophageal reflux disease with esophagitis; R00.2 Palpitations; F17.200 Nicotine dependence, unspecified, uncomplicated; Z87.442 Personal history of urinary calculi; Z82.3 Family history of stroke; Z80.49 Family history of malignant neoplasm of other genital organs; Z83.3 Family history of diabetes mellitus; Z82.49 Family history of ischemic heart disease and other diseases of the circulatory system; Z82.5 Family history of asthma and other chronic lower respiratory diseases

== ENCOUNTER → 2017-03-29 | Outpatient (CLI) | payer OTHER ==
[~2017-03-29] MED LIST changes: -ATROPINE SULFATE 0.1 MG/ML 5ML SYR IV PRN; -CIPROFLOXACIN 400MG / D5W IV SCH; -EpHEDrine SULFATE INJ 50 MG/ML AMP IV PRN; -FENTANYL CITRATE INJ 50 MCG/1 ML 2 ML VIAL IV PRN; -FENTANYL CITRATE INJ 50 MCG/1 ML 2 ML VIAL ONE; -HYDROmorphone INJ 1 MG/ML SYR IV PRN; -LIDOCAINE HCL 2% 2 ML VIAL (20MG/ML) ONE; -MIDAZOLAM HCL 1 MG/ML 2ML VIAL ONE; -ONDANSETRON INJ 2 MG/ML 2 ML VIAL IV PRN; -ONDANSETRON INJ 2 MG/ML 2 ML VIAL ONE; -OXYC-737 PO; +OXYC1TAB3 PO; -OXYCODONE/ACETAMINOPHEN 5-325 TAB PO PRN; -PROMETHAZINE HCL INJ 12.5 MG in SODIUM CHLORIDE 0.9% 50ML 50 ML IV PRN; -PROPOFOL IV EMULSION 10 MG/ML 20 ML VIAL IV ONE
--- NOTE | 2017-03-29 16:56 | DIAGNOSTIC IMAGING REPORT ---
KUB CLINICAL HISTORY: Nephrolithiasis. COMPARISON STUDY: CT of the abdomen and pelvis February 22, 2017 and [facility]UB March 18, 2017. FINDINGS: There are cholecystectomy clips. Bowel gas pattern is normal. No ureteral calculi are identified. The previously described left renal calculus is not well visualized on this exam and may be obscured by stool. IMPRESSION: 1. No ureteral calculi identified. 2. Previously described left renal calculus not well visualized on this exam and may be obscured by stool. Electronically signed by: Anthony Brand M.D. 03/29/2017 4:55 PM Dictated Date/Time: 03/29/2017 4:53 PM
== END | disposition home or self-care (01) ==
LOC: C.RAD 16:14
PROVIDERS: ATTEND Urology
DX: N20.0 Calculus of kidney (principal)